=== PATIENT | male | born 1940 | race Two or more races ===

== ENCOUNTER 2017-11-22 08:48 | Outpatient (CLI) | payer OTHER ==
[~2017-11-22 08:48] MED LIST: DRAMAMINE LESS25 MG PO; WELLBUTRIN XL300 MG
== END 2017-11-22 09:42 | disposition home or self-care (01) ==
LOC: MRI 08:48
DX: R42 Dizziness and giddiness (principal); R55 Syncope and collapse; G43.C0 Periodic headache syndromes in child or adult, not intractable
CPT/HCPCS: 70552; A9579

== ENCOUNTER 2017-11-26 09:07 | Outpatient (CLI) | payer OTHER | END 2017-11-26 10:00 | disposition home or self-care (01) | LOC: NUCLEAR 09:07 | DX: R42 Dizziness and giddiness (principal); R55 Syncope and collapse; G40.209 Localization-related (focal) (partial) symptomatic epilepsy and epileptic syndromes with complex partial seizures, not intractable, without status epilepticus ==

== ENCOUNTER 2018-03-10 06:26 | Day surgery (SDC) | payer OTHER ==
[2018-03-10] MEDS ORDERED: ULTRACET PO (12:23)
[2018-03-10] MEDS ORDERED: SURFAK240 MG NGT (12:23)
== END 2018-03-10 17:20 | disposition home or self-care (01) ==
LOC: CIR.AMB 06:26
DX: K40.90 Unilateral inguinal hernia, without obstruction or gangrene, not specified as recurrent (principal); D17.6 Benign lipomatous neoplasm of spermatic cord

== ENCOUNTER 2022-03-14 12:00 | Outpatient (CLI) | payer OTHER ==
[~2022-03-14 12:00] MED LIST changes: +SURFAK240 MG NGT; +ULTRACET PO
== END 2022-03-14 12:08 | disposition home or self-care (01) ==
LOC: RAD 12:00
PROVIDERS: ATTEND General Practice
DX: J44.9 Chronic obstructive pulmonary disease, unspecified (principal); I70.0 Atherosclerosis of aorta; I51.7 Cardiomegaly